=== PATIENT | female | born 1990 | race African-American/Black ===

== ENCOUNTER 2021-10-21 12:01 | Emergency (ER) | payer OTHER ==
[~2021-10-21] VITALS: Ht 160 cm; Wt 74.0 kg
[2021-10-21 12:08] VITALS: BP 150/90
[2021-10-21] MEDS ORDERED: LORAZEPAM 1MG TABLET PO ONE (12:15)
== END 2021-10-21 12:50 | disposition left against medical advice (07) ==
LOC: ER 12:01
DX: T40.711A Poisoning by cannabis, accidental (unintentional), initial encounter (principal); F12.951 Cannabis use, unspecified with psychotic disorder with hallucinations; F12.980 Cannabis use, unspecified with anxiety disorder; R00.0 Tachycardia, unspecified; R03.0 Elevated blood-pressure reading, without diagnosis of hypertension; Y92.89 Other specified places as the place of occurrence of the external cause
CPT/HCPCS: 93005; 99283